=== PATIENT | female | born 1980 | race Caucasian/White ===

== ENCOUNTER → 2020-11-10 22:06 | Outpatient (CLI) | payer BC | END | disposition home or self-care (01) | LOC: D.MAMMO 11-09 10:15 | PROVIDERS: ATTEND Nurse Practitioner | DX: Z12.31 Encounter for screening mammogram for malignant neoplasm of breast (principal) ==

== ENCOUNTER 2020-12-08 18:55 | Emergency (ER) | payer BC ==
[~2020-12-08] VITALS: Ht 172.7 cm; Wt 90.7 kg
[2020-12-08] MEDS ORDERED: FERROUS SULFAT325 MG (19:05)
[2020-12-08] MEDS ORDERED: TRIAMTERENE-HC1 EAC3 PO (19:05)
[2020-12-08 19:06] VITALS: Ht 172.7 cm; Wt 90.7 kg
[2020-12-08] MEDS ORDERED: RESTORIL15 MG (19:06)
[2020-12-08] MEDS ORDERED: MOBIC7.5 MG PO (19:06)
[2020-12-08] MEDS ORDERED: BUPROPION HCL100 MG PO (19:06)
[2020-12-08] MEDS ORDERED: HYDROCODON-ACE1 EAC7 PO (20:38)
[2020-12-08 20:45] VITALS: BP 132/80
== END 2020-12-08 20:46 | disposition home or self-care (01) ==
LOC: D.ER 18:55
DX: S61.012A Laceration without foreign body of left thumb without damage to nail, initial encounter (principal); W26.0XXA Contact with knife, initial encounter; Y93.9 Activity, unspecified; Y92.9 Unspecified place or not applicable; I10 Essential (primary) hypertension